=== PATIENT | male | born 1940 | race Two or more races ===

== ENCOUNTER 2017-11-02 10:27 | Outpatient (CLI) | payer OTHER ==
[~2017-11-02 10:27] MED LIST: CATAFLAM50 MG PO; COZAAR50 MG; ECOTRIN81 MG; ERGOLOID MESYLAT1 MG; FENOFIBRATE160 MG; LISINOPRIL10 MG; METFORMIN HCL500 MG; NEURONTIN300 MG; ORPH100T PO; PRAVACHOL10 MG; ULTRACET; VITAMIN B-1250 MCG
== END 2017-11-02 10:30 | disposition home or self-care (01) ==
LOC: RAD 501 10:27
DX: R07.89 Other chest pain (principal); T66.XXXA Radiation sickness, unspecified, initial encounter; R63.0 Anorexia; M54.5 Low back pain

== ENCOUNTER 2017-11-02 12:02 | Outpatient (CLI) | payer OTHER | END 2017-11-02 15:19 | disposition home or self-care (01) | LOC: TOM 12:02 | DX: M54.5 Low back pain (principal); Z85.46 Personal history of malignant neoplasm of prostate; K62.7 Radiation proctitis; R63.4 Abnormal weight loss ==

== ENCOUNTER 2021-08-14 11:36 | Emergency (ER) | payer OTHER ==
[~2021-08-14] VITALS: Ht 162.6 cm; Wt 74.8 kg
== END 2021-08-14 15:59 | disposition home or self-care (01) ==
LOC: ER 11:36
DX: R06.02 Shortness of breath (principal); R53.83 Other fatigue; Z11.52 Encounter for screening for COVID-19

== ENCOUNTER 2024-12-27 08:05 | Emergency (ER) | payer OTHER ==
[~2024-12-27] VITALS: Ht 160 cm; Wt 68.0 kg
[2024-12-27] MEDS ORDERED: Dextrose ORAL GEL 37.5GM GEL PO ONE (08:15)
[2024-12-27] MEDS ORDERED: DEXTROSE 50 % IN WATER 0.5 G/ML DISP.SYRIN IV ONE (08:16)
[2024-12-27 08:19] VITALS: BP 138/71; O2SAT 96
[2024-12-27] MEDS ORDERED: FAMOTIDINE40 MG PO (08:21)
[2024-12-27] MEDS ORDERED: GLIMEPIRIDE4 M1 PO (08:22)
[2024-12-27] MEDS ORDERED: ROSUVASTATIN CA40 MG PO (08:23)
[2024-12-27] MEDS ORDERED: TRIJARDY XR 121 EACH PO (08:24)
[2024-12-27] MEDS ORDERED: EZETIMIBE10 MG PO (08:24)
[2024-12-27] MEDS ORDERED: DEXTROSE 5 % AND 0.9 % NACL 1,000 ML IV SCH (08:45)
[2024-12-27 09:21] LABS: HEMATOCRIT 43.3 % (39.0-48.0); HEMOGLOBIN 14.3 g/dL (13-16.00); MEAN CELL VOLUME 88.2 fL (80.0-100.00); MEAN CORPUSCULAR HEMOGLOBIN 29.2 pg (27.00-32.0); MEAN CORPUSCULAR HGB CONC 33.1 g/dl (32.0-36.0); PLATELET COUNT 192 K/uL (150-450); RED BLOOD COUNT 4.91 M/uL (4.00-6.00); RED CELL DISTRIBUTION WIDTH 14.2 % (11.5-14.5)
[2024-12-27 09:27] LABS: PH,URINE 6.5 (5.0-8.0); URINE APPEARANCE Clear; URINE BILIRRUBIN Negative (NEGATIVE); URINE BLOOD Negative; URINE COLOR Yellow; URINE KETONE Negative (NEGATIVE); URINE LEUKOCYTE Negative; URINE NITRATE Negative; URINE PROTEIN Negative (NEGATIVE); URINE UROBILINOGEN 0.2 E.U./dl
[2024-12-27 09:29] LABS: URINE BACTERIA 13.4 uL (0.0-1933); URINE RBC 2.3 uL (0.0-20.8); URINE WBC 1.8 uL (0.0-23.2)
[2024-12-27 09:41] LABS: ALBUMIN 3.5 gm/dL (3.4-5.0); BILIRUBIN TOTAL 0.31 mg/dL (0.3-1.2); CALCIUM 9.5 mg/dL (8.5-10.1); CREATININE SERUM 0.87 mg/dL (0.70-1.30); GFR 83.4; GLOBULINA 3.4 G/DL (2.4-3.5); POTASSIUM 5.06 mEq/L (3.5-5.1); TOTAL PROTEIN 6.9 gm/dL (6.4-8.2)
[2024-12-27 09:52] LABS: URINE EPITHELIAL CELLS 0.9 uL (0.0-38.8); URINE GLUCOSE >=1000 MG/DL (NEGATIVE)
[2024-12-27 09:58] LABS: PROSTATIC SPECIFIC ANTIGEN 2.06 NG/ML (0.010-4.00)
[2024-12-27] MEDS ORDERED: OCTREOTIDE ACETATE 0.05MG/ML (50MCG/ML) AMPUL IV STA (10:35)
[2024-12-27] MEDS ORDERED: OCTREOTIDE ACETATE 0.05MG/ML (50MCG/ML) AMPUL ONE (10:44)
== END 2024-12-27 14:16 | disposition home or self-care (01) ==
LOC: ER 08:05
PROVIDERS: General Practice
DX: E16.2 Hypoglycemia, unspecified (principal); I10 Essential (primary) hypertension; E11.9 Type 2 diabetes mellitus without complications; Z79.84 Long term (current) use of oral hypoglycemic drugs
CPT/HCPCS: 36415; 70450; 71046; 96365; 96366; 99284; J3490; J7030

== ENCOUNTER 2025-08-02 08:54 | Outpatient (CLI) | payer OTHER ==
[~2025-08-02 08:54] MED LIST changes: +EZETIMIBE10 MG PO; +FAMOTIDINE40 MG PO; +GLIMEPIRIDE4 M1 PO; +ROSUVASTATIN CA40 MG PO; +TRIJARDY XR 121 EACH PO
== END 2025-08-02 08:58 | disposition home or self-care (01) ==
LOC: MRI 08:54
DX: M96.1 Postlaminectomy syndrome, not elsewhere classified (principal)
CPT/HCPCS: 72110; 72158; Q9965

== ENCOUNTER 2025-08-06 07:20 | Outpatient (CLI) | payer OTHER | END 2025-08-06 07:33 | disposition home or self-care (01) | LOC: TOM 07:20 | PROVIDERS: ATTEND Neurological Surgery | DX: M96.1 Postlaminectomy syndrome, not elsewhere classified (principal) ==